=== PATIENT | female | born 2000 | race Caucasian/White ===

== ENCOUNTER 2021-05-07 02:45 | Emergency (ER) | payer MEDICAID ==
[~2021-05-07] VITALS: Ht 162.6 cm; Wt 60.0 kg
[2021-05-07] MEDS ORDERED: PROPOFOL 200MG/20ML VIAL IV ONE (03:30)
[2021-05-07] MEDS ORDERED: MORPHINE SULFATE 4 MG/ML CPJ (NOT FOR IM USE) IV ONE (03:30)
[2021-05-07] MEDS ORDERED: ONDANSETRON HCL 4MG/2ML INJ IV ONE (03:30)
[2021-05-07] MEDS ORDERED: HYDR-4001 MT (06:23)
[2021-05-07 09:24] VITALS: BP 106/52
== END 2021-05-07 09:26 | disposition home or self-care (01) ==
LOC: ER 02:45
DX: S93.05XA Dislocation of left ankle joint, initial encounter (principal); W50.2XXA Accidental twist by another person, initial encounter; Y93.89 Activity, other specified; Y92.89 Other specified places as the place of occurrence of the external cause; Y99.8 Other external cause status
CPT/HCPCS: 27840; 73590; 73600; 81025; 96374; 96375; 99152; 99285; J2270; J2405; J2704; Z7610